=== PATIENT | male | born 1975 | race Hispanic/Latino ===

== ENCOUNTER 2019-05-20 19:50 | Emergency (ER) | payer BC ==
[~2019-05-20 19:50] MED LIST: DOXY100T2 PO; SULF1TAB42 PO
== END 2019-05-20 20:54 | disposition home or self-care (01) ==
LOC: EDH 19:50
DX: S60.464A Insect bite (nonvenomous) of right ring finger, initial encounter (principal); W57.XXXA Bitten or stung by nonvenomous insect and other nonvenomous arthropods, initial encounter; Y93.89 Activity, other specified; Y92.89 Other specified places as the place of occurrence of the external cause; Y99.9 Unspecified external cause status
CPT/HCPCS: 99281

== ENCOUNTER → 2022-12-31 | Outpatient (CLI) | payer OTHER | END | disposition home or self-care (01) | LOC: OIH 13:39 | PROVIDERS: ATTEND Internal Medicine | DX: Z13.6 Encounter for screening for cardiovascular disorders (principal) | CPT/HCPCS: 75571 ==